=== PATIENT | male | born 2000 | race Caucasian/White ===

== ENCOUNTER 2018-05-13 12:22 | Emergency (ER) | payer MEDICAID ==
[~2018-05-13] VITALS: Ht 167.6 cm; Wt 132.0 kg
[2018-05-13 12:44] VITALS: BP 147/82
[2018-05-13] MEDS ORDERED: CITA40TA13 PO (12:50)
[2018-05-13] MEDS ORDERED: SYN.1 PO (12:50)
--- NOTE | 2018-05-13 12:51 | NUR ---
PATIENT AMBULATED TO BED 6 AT THIS TIME.
--- NOTE | 2018-05-13 13:01 | NUR ---
PT BIB SELF C/O POSSIBLE EXPOSURE TO HIV LAST NIGHT. PT REPORTS UNPROTECTED SEX WITH PARTNER LAST NIGHT. PT STAES 1 SEXUAL PARTNER IN LAST MONTH AND STATES NEVER HAS UNPROTECTED SEX UNTIL LAST NIGHT. SEXUAL PARTNER IS NOT A STRANGER, BUT HIV STATUS IS UNKNOWN. VSS. SALLY ROBLES TO SEE PT. MEDHX:NONE RX:NONE
--- NOTE | 2018-05-13 13:33 | NUR ---
LAB AT BEDSIDE
[2018-05-13 14:27] VITALS: BP 147/82
--- NOTE | 2018-05-13 14:27 | NUR ---
Patient discharged with v/s stable. Written and verbal after care instructions given and explained. Patient alert, oriented and verbalized understanding of instructions. Ambulatory with steady gait. All questions addressed prior to discharge. ID band removed. Patient advised to follow up with PMD. Rx of TRUVADA given. Patient educated on indication of medication including possible reaction and side effects. Opportunity to ask questions provided and answered.
== END 2018-05-13 14:27 | disposition home or self-care (01) ==
LOC: MED 12:22
DX: Z20.2 Contact with and (suspected) exposure to infections with a predominantly sexual mode of transmission (principal); Z79.899 Other long term (current) drug therapy
CPT/HCPCS: 81002; 99283